=== PATIENT | male | born 1970 | race Hispanic/Latino ===

== ENCOUNTER 2018-09-16 08:12 | Day surgery (SDC) | payer BC ==
[2018-09-16 08:59] VITALS: BMI 28.5
[2018-09-16] MEDS ORDERED: Propofol 10 mg/ml Inj (20 ML) ONE ×5 (09:43→10:33)
[2018-09-16] MEDS ORDERED: Midazolam 2 MG/2 ML VIAL ONE (09:43)
[2018-09-16 14:04] VITALS: TEMP 97; O2SAT 100
[2018-09-16 14:06] VITALS: PULSE 48
[2018-09-16 14:23] VITALS: BP 110/65; RESP 18
== END 2018-09-16 12:15 | disposition home or self-care (01) ==
LOC: C.ENDO 08:12
PROVIDERS: ATTEND Internal Medicine Gastroenterology
DX: R10.13 Epigastric pain (principal); K62.5 Hemorrhage of anus and rectum; D12.0 Benign neoplasm of cecum; D12.5 Benign neoplasm of sigmoid colon; K64.8 Other hemorrhoids; K20.9 Esophagitis, unspecified; K29.70 Gastritis, unspecified, without bleeding
CPT/HCPCS: 43239; 43250; 45380; 45384; 88305; J2250; J2704